=== PATIENT | female | born 1940 | race Caucasian/White ===

== ENCOUNTER 2023-09-05 14:25 | Emergency (ER) | payer OTHER ==
[~2023-09-05] VITALS: Ht 175.3 cm; Wt 73.0 kg
[2023-09-05 14:45] VITALS: PULSE 79; RESP 14; TEMP 97.9; O2SAT 96
[2023-09-05] MEDS: ONDANSETRON HCL 4 MG/2 ML VIAL IV ONE (15:31)
[2023-09-05] MEDS: GLUCAGON EMERG KIT 1mg/1ml IV ONE (15:33)
[2023-09-05 16:30] VITALS: BP 139/62; PULSE 77; RESP 12; O2SAT 94
== END 2023-09-05 16:40 | disposition home or self-care (01) ==
LOC: EDBD 14:25 → ER 14:25
DX: R09.A2 Foreign body sensation, throat (principal); J44.9 Chronic obstructive pulmonary disease, unspecified
CPT/HCPCS: 70490; 96374; 96375; 99285; J1610; J2405